=== PATIENT | female | born 1970 | race Caucasian/White ===

== ENCOUNTER 2025-10-16 11:03 | Emergency (ER) | payer BC, SELFPAY ==
[2025-10-16] MEDS ORDERED: Ondansetron PF 4 MG/2 ML Vial ONE (11:23)
[2025-10-16] MEDS ORDERED: Ketorolac Tromethamine 30 MG (1 mL) VIAL ONE ×2 (11:23→13:41)
[2025-10-16 11:36] LABS: #Basophils 0.04 10x3/uL (0.0-0.2); #Eosinophils 0.07 10x3/uL (0.0-0.5); #Monocytes 0.45 10x3/uL (0.0-1.1); #Neutrophils 8.32 10x3/uL (1.5-8.4); %Basophils 0.4 % (0.0-2.0); %Eosinophils 0.6 % (0.0-6.0); %Lymphocytes 18.9 % (18.0-47.0); %Monocytes 4.1 % (0.0-10.0); %Neutrophils 75.7 % (40.0-75.0); Hematocrit 39.6 % (34.9-44.5); Hemoglobin 13.0 g/dL (12.0-15.5); Mean Corpuscular Hemoglobin 30.2 pg (27.0-33.0); Mean Corpuscular Volume 91.9 fL (81.6-98.3); Platelet Count 211 10x3/uL (150-450); Red Blood Cell (RBC) Count 4.31 10x6/uL (3.90-5.03); White Blood Cell (WBC) Count 10.98 10x3/uL (3.5-10.5)
[2025-10-16 11:53] LABS: ALT (SGPT) 26 U/L (Less than 34); AST (SGOT) 32 U/L (11-34); Albumin 4.2 g/dL (3.1-4.5); Alkaline Phosphatase 49 U/L (40-110); Anion Gap 16 mmol/L (10-20); BUN (Urea Nitrogen) 14 mg/dL (9.8-20.1); Bilirubin, Total 0.4 mg/dL (0.3-1.2); Calc. Creatinine Clearance 0 mL/min (70-130); Calcium 10.1 mg/dL (7.8-10.44); Carbon Dioxide 19 mmol/L (22-29); Chloride 111 mmol/L (98-107); Globulin 3.6 g/dL (2.4-3.5); Glucose 117 mg/dL (70-105); Lipase 26 U/L (8-78); Potassium 4.0 mmol/L (3.5-5.1); Sodium 142 mmol/L (136-145)
[2025-10-16 13:41] LABS: Glucose, Urine (Dipstick) Normal (Negative); Leukocyte Negative (Negative); Protein, Urine (Dipstick) 15 mg/dl (Neg-Trace); Specific Gravity, Urine 1.015 (1.005-1.030)
[2025-10-16 13:49] LABS: Bacteria/HPF Rare-Few HPF (None Seen); CAUTI Indications for Culture Pelvic or flank pain; Mucous/LPF 1+ LPF (<2+); WBC/HPF 0-3 HPF (0-3)
[2025-10-16 13:50] LABS: Urine Culture Reflex No No
== END 2025-10-16 13:40 | disposition home or self-care (01) ==
LOC: CSHERS 11:03
DX: N13.2 Hydronephrosis with renal and ureteral calculous obstruction (principal)
CPT/HCPCS: 36415; 74176; 80053; 81001; 83690; 85025; 96374; 96375; 96376; J1885; J2270; J2405